=== PATIENT | male | born 1970 ===

== ENCOUNTER 2017-01-01 07:13 | Inpatient (IN) | payer OTHER ==
[2017-01-01 07:27] VITALS: BMI 28.1
--- NOTE | 2017-01-01 07:39 | ED PDOC ---
HPI: Male Pain Time Seen by Provider: 01/01/17 07:17 Chief Complaint (Nursing): Fever History Per: Patient History/Exam Limitations: no limitations Onset/Duration Of Symptoms: Days (x 6) Additional Complaint(s): Vitor Arrington is a 46 year old male, with no previous medical history, who presents to the ED with complaints of suprapubic tenderness associated with hematuria and fever ongoing for 6 days. Patient denies any back pain, nausea, vomiting, diarrhea or bloody stools. He reports hematuria has been intermittently ongoing for the past month and a half. PMD: none provided Past Medical History Reviewed: Historical Data, Nursing Documentation, Vital Signs Vital Signs: Last Vital Signs Temp 101.4 F H 01/01/17 07:26 Pulse 99 H 01/01/17 07:26 Resp 16 01/01/17 07:26 BP 152/96 H 01/01/17 07:26 Pulse Ox 98 01/01/17 07:26 - Medical History PMH: No Chronic Diseases - Family History Family History: States: Unknown Family Hx - Allergies Allergies/Adverse Reactions: Allergies Allergy/AdvReac Type Severity Reaction Status Date / Time No Known Allergies Allergy Verified 01/01/17 07:34 Review of Systems ROS Statement: Except As Marked, All Systems Reviewed And Found Negative Constitutional: Positive for: Fever Gastrointestinal: Positive for: Abdominal Pain (suprpubic ). Negative for: Nausea, Vomiting, Diarrhea Genitourinary Male: Positive for: Hematuria. Negative for: Incontinence Musculoskeletal: Negative for: Back Pain Physical Exam - Reviewed Nursing Documentation Reviewed: Yes Vital Signs Reviewed: Yes - Physical Exam Appears: Positive for: Well, Non-toxic, No Acute Distress Skin: Positive for: Normal Color, Warm, Dry Cardiovascular/Chest: Positive for: Regular Rate, Rhythm Respiratory: Positive for: CNT, Normal Breath Sounds Gastrointestinal/Abdominal: Positive for: Bowel Sounds, Soft, Tenderness ( suprapubic ). Negative for: Mass, Guarding Male Genital Exam: Negative for: bleeding (at the meatus ), lesions, scrotum tenderness (R), scrotum tenderness (L) Back: Positive for: Normal Inspection. Negative for: L CVA Tenderness, R CVA Tenderness Extremity: Positive for: Normal ROM Neurologic/Psych: Positive for: Alert, Oriented - Laboratory Results Result Diagrams: 01/01/17 07:55 01/01/17 07:55 - ECG O2 Sat by Pulse Oximetry: 98 (RA) Pulse Ox Interpretation: Normal Medical Decision Making Medical Decision Making: Initial Plan: * VBG shock panel * CT abd & pelvis w/o contrast * labs * urine dipstick * Tylenol 650mg PO * blood culture * urine culture * reevaluation Scribe Attestation: Documented by Liyah Gomez, acting as a scribe for Edin Donnelly MD. Provider Scribe Attestation: All medical record entries made by the Scribe were at my direction and personally dictated by me. I have reviewed the chart and agree that the record accurately reflects my personal performance of the history, physical exam, medical decision making, and the department course for this patient. I have also personally directed, reviewed, and agree with the discharge instructions and disposition. Disposition - Clinical Impression Clinical Impression: Sepsis, Diverticulitis - Patient ED Disposition Is Patient to be Admitted: Yes - Disposition Disposition Time: 10:16 Condition: FAIR Forms: [employer] (Kinyarwanda) - Pt Status Changed To: Hospital Disposition Of: Inpatient - Admit Certification Admit to Inpatient:: After my assessment, the patient will require hospitalization for at least two midnights. This is because of the severity of symptoms shown, intensity of services needed, and/or the medical risk in this patient being treated as an outpatient. - POA Present On Arrival: None
[2017-01-01 08:04] LABS: BASO % 0.4 % (0.0-2.0); EOS % 0.1 % (0.0-4.0); HEMATOCRIT 43.4 % (35.0-51.0); LYMPH # 1.5 K/uL (1.0-4.3); MEAN CELL VOLUME 89.8 fl (80.0-94.0); MEAN CORPUSCULAR HEMOGLOBIN 30.6 pg (27.0-31.0); MEAN CORPUSCULAR HGB CONC 34.1 g/dL (33.0-37.0); MEAN PLATELET VOLUME 8.6 fl (7.2-11.7); MONO # 1.1 K/uL (0.0-0.8); MONO % 11.9 % (0.0-10.0); NEUT # 6.6 K/uL (1.8-7.0); NEUT % 71.6 % (50.0-75.0); WHITE BLOOD COUNT 9.2 K/uL (4.8-10.8)
[2017-01-01 08:06] LABS: VENOUS BLOOD GAS BASE EXCESS 3.6 mmol/L (0.0-2.0); VENOUS BLOOD GAS PCO2 35 mmHg (40-60); VENOUS BLOOD PH 7.49 (7.32-7.43)
[2017-01-01 08:13] LABS: ALB/GLOB RATIO 1.3 (1.0-2.1); ALKALINE PHOSPHATASE 60 U/L (38-126); ALT/SGPT 75 U/L (21-72); AST/SGOT 48 U/L (17-59); BILIRUBIN,TOTAL 0.9 mg/dl (0.2-1.3); BLOOD UREA NITROGEN 19 mg/dl (9-20); CALCIUM 9.1 mg/dL (8.4-10.2); CARBON DIOXIDE 25 mmol/L (22-30); CHLORIDE 104 mmol/L (98-107); GFR AFRICAN-AMERICAN > 60; GLUCOSE,RANDOM 116 mg/dL (75-110); POTASSIUM 3.7 MMOL/L (3.6-5.0); SODIUM 140 mmol/l (132-148)
--- NOTE | 2017-01-01 09:35 | CT ---
PROCEDURE: CT Abdomen and Pelvis without intravenous contrast HISTORY: r/o kidney stone COMPARISON: None. TECHNIQUE: Technique. Contrast Dose: Radiation dose: Total exam DLP = 1199 mGy-cm. This CT exam was performed using one or more of the following dose reduction techniques: Automated exposure control, adjustment of the mA and/or kV according to patient size, and/or use of iterative reconstruction technique. FINDINGS: LOWER THORAX: Unremarkable. LIVER: Fatty infiltration. No gross lesion or ductal dilatation. GALLBLADDER AND BILE DUCTS: Unremarkable. PANCREAS: Unremarkable. No gross lesion or ductal dilatation. SPLEEN: Unremarkable. ADRENALS: Unremarkable. No mass. KIDNEYS AND URETERS: Unremarkable. No hydronephrosis. No solid mass. VASCULATURE: Unremarkable. No aortic aneurysm. BOWEL: Extensive colonic diverticulosis with severe pericolonic fat infiltration along the sigmoid colon in the supra vesicle region consistent with severe acute diverticulitis. No gross abscess or pneumoperitoneum.. No obstruction. No gross mural thickening. APPENDIX: Unremarkable. Normal appendix. PERITONEUM: Unremarkable. No free fluid. No free air. LYMPH NODES: Unremarkable. No enlarged lymph nodes. BLADDER: Unremarkable. REPRODUCTIVE: Unremarkable. BONES: No acute fracture. OTHER FINDINGS: None. IMPRESSION: Severe diverticulitis of the sigmoid colon with extensive infiltration in the supra vesicle mesenteric fat. No renal calculus.
[2017-01-01] MEDS ORDERED: Piperacillin/Tazobact 3.375 GM in Sodium Chloride 0.9% 100 ML IVPB STA (10:14)
[2017-01-01] MEDS ORDERED: Vancomycin 1 g Inj ONE (10:32)
--- NOTE | 2017-01-01 11:55 | CP.PCM.HP ---
History of Present Illness - History of Present Illness History of Present Illness: 46 yo male with no significant PMH came in complaining of suprapubic pain, dysuria, hematuria and fever the past 6 days. He was seen in an outpatient clinic where work ups turned out WNL: no leukocytosis, no hematuria or evidence of UTI and PSA was WNL. With symptoms not abating patient decided to check in to our ER dept. Denied chest pain, SOB or diarrhea. Present on Admission - Present on Admission Any Indicators Present on Admission: No History of DVT/PE: No History of Uncontrolled Diabetes: No Urinary Catheter: No Decubitus Ulcer Present: No Review of Systems - Review of Systems All systems: reviewed and no additional remarkable complaints except (aside from those mentioned above, 12 point system review were negative by me) Past Patient History - Tetanus Immunizations Tetanus Immunization: Unknown - Past Medical History & Family History Past Medical History?: No Pertinent Family History: Father of Prostate Cancer at age 59 - Past Social History Smoking Status: Never Smoked Alcohol: > 2 Drinks/Day (drinks 2-3 bottles of beer) Home Situation {Lives}: With Family - CARDIAC Hx Cardiac Disorders: No - PULMONARY Hx Respiratory Disorders: No - NEUROLOGICAL Hx Neurological Disorder: No - HEENT Hx HEENT Problems: No - RENAL Hx Chronic Kidney Disease: No - ENDOCRINE/METABOLIC Hx Endocrine Disorders: No - HEMATOLOGICAL/ONCOLOGICAL Hx Blood Disorders: No - INTEGUMENTARY Hx Dermatological Problems: No - MUSCULOSKELETAL/RHEUMATOLOGICAL Hx Musculoskeletal Disorders: No - GASTROINTESTINAL Hx Gastrointestinal Disorders: No - GENITOURINARY/GYNECOLOGICAL Hx Genitourinary Disorders: No - PSYCHIATRIC Hx Psychophysiologic Disorder: No Hx Substance Use: No - SURGICAL HISTORY Hx Surgeries: No - ANESTHESIA Hx Anesthesia: No Meds Allergies/Adverse Reactions: Allergies Allergy/AdvReac Type Severity Reaction Status Date / Time No Known Allergies Allergy Verified 01/01/17 07:34 Physical Exam - Constitutional Appears: No Acute Distress - Head Exam Head Exam: ATRAUMATIC - Eye Exam Eye Exam: absent: Scleral icterus - ENT Exam ENT Exam: Mucous Membranes Moist - Neck Exam Neck exam: Negative for: Meningismus - Respiratory Exam Respiratory Exam: absent: Rhonchi, Wheezes, Respiratory Distress - Cardiovascular Exam Cardiovascular Exam: REGULAR RHYTHM, +S1, +S2 - GI/Abdominal Exam GI & Abdominal Exam: Normal Bowel Sounds, Soft. absent: Tenderness - Rectal Exam Rectal Exam: Deferred - Extremities Exam Extremities exam: Negative for: pedal edema - Back Exam Back exam: absent: tenderness - Neurological Exam Neurological exam: Alert, Oriented x3 - Psychiatric Exam Psychiatric exam: Normal Affect - Skin Skin Exam: Dry, Intact, Warm Results - Vital Signs Recent Vital Signs: Last Vital Signs Temp 99.0 F 01/01/17 10:40 Pulse 81 01/01/17 10:40 Resp 17 01/01/17 10:40 BP 138/91 H 01/01/17 10:40 Pulse Ox 96 01/01/17 10:40 - Labs Result Diagrams: 01/01/17 07:55 01/01/17 07:55 Assessment & Plan (1) Sepsis Status: Acute Comment: Admit to telemetry. start on IV hydration with NSS 100cc/hr. blood and urine culture. start on empirical IV antibiotics. Tylenol 650mg PO q 6hrs prn for fever (2) Diverticulitis Status: Acute Comment: Rocephin 1gm IV daily. Zosyn 3.375gm IV q 6hrs. follow up blood and urine culture (3) DVT prophylaxis Status: Acute Comment: venodyne boots while on bed. avoid anticoagulation because of possible hematuria
[2017-01-01] MEDS ORDERED: Pantoprazole 40 mg EC Tab PO ONE (12:10)
[2017-01-01] MEDS: Sodium Chloride 0.9% 1,000 ML IV SCH ×2 (12:13→22:00)
[2017-01-01] MEDS: Pantoprazole 40 mg EC Tab PO SCH (12:13)
[2017-01-01] MEDS ORDERED: Piperacillin/Tazobact 3.375 gm Inj IVPB ONE (12:15)
[2017-01-01 12:47] LABS: RBC URINE 12 /hpf (0-3); URINE BILIRUBIN NEGATIVE (NEGATIVE); URINE BLOOD SMALL (NEGATIVE); URINE COLOR AMBER (YELLOW); URINE GLUCOSE (UA) NEG (Normal); URINE KETONE 20 mg/dL (NEGATIVE); URINE LEUKOCYTE ESTERASE NEG Leu/uL (Negative); URINE PROTEIN 100 mg/dL (NEGATIVE); WBC URINE 1 /hpf (0-5)
[2017-01-01] MEDS: metroNIDAZOLE 500mg/100ml NS 100 ML IVPB SCH (17:03)
[2017-01-01] MEDS: Piperacillin/Tazobact 3.375 GM in Sodium Chloride 0.9% 100 ML IVPB SCH ×2 (17:04→21:22)
[2017-01-02] MEDS: metroNIDAZOLE 500mg/100ml NS 100 ML IVPB SCH ×3 (01:02→18:15)
[2017-01-02] MEDS: Piperacillin/Tazobact 3.375 GM in Sodium Chloride 0.9% 100 ML IVPB SCH ×4 (03:26→21:19)
[2017-01-02 08:24] LABS: BASO % 0.4 % (0.0-2.0); EOS # 0.1 K/uL (0.0-0.7); EOS % 1.8 % (0.0-4.0); HEMATOCRIT 41.2 % (35.0-51.0); LYMPH # 0.7 K/uL (1.0-4.3); LYMPH % 11.1 % (20.0-40.0); MEAN CELL VOLUME 89.2 fl (80.0-94.0); MEAN CORPUSCULAR HEMOGLOBIN 30.6 pg (27.0-31.0); MEAN CORPUSCULAR HGB CONC 34.3 g/dL (33.0-37.0); MEAN PLATELET VOLUME 8.6 fl (7.2-11.7); MONO # 0.8 K/uL (0.0-0.8); NEUT # 4.4 K/uL (1.8-7.0); NEUT % 73.7 % (50.0-75.0); NRBC % 0.2 % (0.0-0.0); RED CELL DISTRIBUTION WIDTH 13.4 % (11.5-14.5)
[2017-01-02 08:29] LABS: BLOOD UREA NITROGEN 17 mg/dl (9-20); CALCIUM 8.5 mg/dL (8.4-10.2); CARBON DIOXIDE 22 mmol/L (22-30); CHLORIDE 107 mmol/L (98-107); GFR AFRICAN-AMERICAN > 60; GLUCOSE,RANDOM 107 mg/dL (75-110); POTASSIUM 3.5 MMOL/L (3.6-5.0); SODIUM 139 mmol/l (132-148)
[2017-01-02] MEDS: Sodium Chloride 0.9% 1,000 ML IV SCH ×2 (08:58→18:14)
[2017-01-02] MEDS: Pantoprazole 40 mg EC Tab PO SCH (08:59)
[2017-01-02] MEDS ORDERED: Potassium Chloride 10 mEq ER Tab PO ONE (09:45)
--- NOTE | 2017-01-02 18:55 | CP.PCM.PN ---
Subjective - Date & Time of Evaluation Date of Evaluation: 01/02/17 Time of Evaluation: 17:00 - Subjective Subjective: Pt seen and examined. Still having suprapubic pain but less compared to yesterday. Denied dysuria or hematuria today. Objective - Vital Signs/Intake and Output Vital Signs (last 24 hours): Temp Pulse Resp BP Pulse Ox 98.5 F 86 20 149/92 H 97 01/02/17 15:45 01/02/17 15:45 01/02/17 15:45 01/02/17 15:45 01/02/17 15:45 - Medications Medications: Current Medications Acetaminophen (Tylenol 325mg Tab) 650 mg PO Q4 PRN PRN Reason: Fever >100.4 F Last Admin: 01/01/17 18:56 Dose: 650 mg Sodium Chloride (Sodium Chloride 0.9%) 1,000 mls @ 100 mls/hr IV .Q10H [facility] Last Admin: 01/02/17 18:14 Dose: 100 mls/hr Metronidazole (Flagyl 500mg/100ml Ns) 100 mls @ 100 mls/hr IVPB Q8 [facility] Last Admin: 01/02/17 18:15 Dose: 100 mls/hr Piperacillin Sod/Tazobactam (Sod 3.375 gm/ Sodium Chloride) 100 mls @ 100 mls/ hr IVPB Q6 [facility] Last Admin: 01/02/17 18:14 Dose: 100 mls/hr Pantoprazole Sodium (Protonix Ec Tab) 40 mg PO DAILY [facility] Last Admin: 01/02/17 08:59 Dose: 40 mg - Labs Labs: 01/02/17 07:00 01/02/17 07:00 - Constitutional Appears: No Acute Distress - Head Exam Head Exam: ATRAUMATIC - Eye Exam Eye Exam: absent: Scleral icterus - ENT Exam ENT Exam: Mucous Membranes Moist - Neck Exam Neck Exam: absent: Meningismus - Respiratory Exam Respiratory Exam: absent: Rhonchi, Wheezes, Respiratory Distress - Cardiovascular Exam Cardiovascular Exam: REGULAR RHYTHM, +S1, +S2 - GI/Abdominal Exam GI & Abdominal Exam: Soft. absent: Tenderness - Rectal Exam Rectal Exam: Deferred - Extremities Exam Extremities Exam: absent: Pedal Edema - Back Exam Back Exam: absent: tenderness - Neurological Exam Neurological Exam: Alert, Oriented x3 - Psychiatric Exam Psychiatric exam: Normal Affect - Skin Skin Exam: Dry, Intact Assessment and Plan (1) Sepsis Status: Acute (2) Diverticulitis Status: Acute (3) DVT prophylaxis Status: Acute - Assessment and Plan (Free Text) Assessment: 46 yo male with no significant PMH came in complaining of suprapubic pain, dysuria with grossly bloody urine and fever the past 6 days. (1) Sepsis resolved afebrile since admission and no leukocytosis (2) Diverticulitis continue Rocephin 1gm IV daily and Zosyn 3.375gm IV q 6hrs. CT scan of abdomen and pelvis: severe diverticulitis of sigmoid colon with extensive infiltration in the supra vesicle mesenteric fat probably causing the suprapubic pain follow up consult with Dr Newsome and Dr Ahmadi (3) DVT prophylaxis venodyne boots while on bed. avoid anticoagulation because of possible hematuria
[2017-01-02 19:13] VITALS: O2SAT 98
[2017-01-03] MEDS: metroNIDAZOLE 500mg/100ml NS 100 ML IVPB SCH ×2 (01:29→08:55)
[2017-01-03] MEDS: Piperacillin/Tazobact 3.375 GM in Sodium Chloride 0.9% 100 ML IVPB SCH ×2 (04:17→09:03)
[2017-01-03] MEDS: Pantoprazole 40 mg EC Tab PO SCH (08:56)
[2017-01-03] MEDS: Sodium Chloride 0.9% 1,000 ML IV SCH (12:57)
--- NOTE | 2017-01-03 14:34 | CP.PCM.CON ---
History of Present Illness - History of Present Illness History of Present Illness: 46 yo male c/o suprapubic pain, dysuria, and hematuria . He initially went to the clinic and came to ER when symptoms did not improve. Review of Systems - Constitutional Constitutional: absent: Chills - EENT Eyes: absent: Blurred Vision Ears: absent: Decreased Hearing Nose/Mouth/Throat: absent: Epistaxis - Cardiovascular Cardiovascular: absent: Chest Pain - Respiratory Respiratory: absent: Dyspnea - Gastrointestinal Gastrointestinal: As Per HPI - Genitourinary Genitourinary: Hematuria Past Patient History - Tetanus Immunizations Tetanus Immunization: Unknown - Past Medical History & Family History Past Medical History?: No - Past Social History Smoking Status: Never Smoked - CARDIAC Hx Cardiac Disorders: No - PULMONARY Hx Respiratory Disorders: No - NEUROLOGICAL Hx Neurological Disorder: No - HEENT Hx HEENT Problems: No - RENAL Hx Chronic Kidney Disease: No - ENDOCRINE/METABOLIC Hx Endocrine Disorders: No - HEMATOLOGICAL/ONCOLOGICAL Hx Blood Disorders: No - INTEGUMENTARY Hx Dermatological Problems: No - MUSCULOSKELETAL/RHEUMATOLOGICAL Hx Musculoskeletal Disorders: No Hx Falls: No - GASTROINTESTINAL Hx Gastrointestinal Disorders: No - GENITOURINARY/GYNECOLOGICAL Hx Genitourinary Disorders: No - PSYCHIATRIC Hx Psychophysiologic Disorder: No Hx Substance Use: No - SURGICAL HISTORY Hx Surgeries: No - ANESTHESIA Hx Anesthesia: No Meds Allergies/Adverse Reactions: Allergies Allergy/AdvReac Type Severity Reaction Status Date / Time No Known Allergies Allergy Verified 01/01/17 07:34 - Medications Medications: Current Medications Acetaminophen (Tylenol 325mg Tab) 650 mg PO Q4 PRN PRN Reason: Fever >100.4 F Last Admin: 01/01/17 18:56 Dose: 650 mg Sodium Chloride (Sodium Chloride 0.9%) 1,000 mls @ 100 mls/hr IV .Q10H [facility] Last Admin: 01/03/17 12:57 Dose: 100 mls/hr Metronidazole (Flagyl 500mg/100ml Ns) 100 mls @ 100 mls/hr IVPB Q8 [facility] Last Admin: 01/03/17 08:55 Dose: 100 mls/hr Piperacillin Sod/Tazobactam (Sod 3.375 gm/ Sodium Chloride) 100 mls @ 100 mls/ hr IVPB Q6 [facility] Last Admin: 01/03/17 09:03 Dose: 100 mls/hr Pantoprazole Sodium (Protonix Ec Tab) 40 mg PO DAILY [facility] Last Admin: 01/03/17 08:56 Dose: 40 mg Physical Exam - Head Exam Head Exam: NORMAL INSPECTION - Eye Exam Eye Exam: Normal appearance Pupil Exam: PERRL - ENT Exam ENT Exam: Normal Exam - Neck Exam Neck exam: Positive for: Normal Inspection - Respiratory Exam Respiratory Exam: Clear to Auscultation Bilateral - Cardiovascular Exam Cardiovascular Exam: REGULAR RHYTHM, +S1, +S2 - GI/Abdominal Exam GI & Abdominal Exam: Normal Bowel Sounds, Soft, Tenderness Additional comments: marked LLQ and suprapubic tenderness Results - Vital Signs Recent Vital Signs: Last Vital Signs Temp 97.9 F 01/03/17 12:00 Pulse 73 01/03/17 12:00 Resp 18 01/03/17 12:00 BP 139/89 01/03/17 12:00 Pulse Ox 98 01/03/17 12:00 - Labs Result Diagrams: 01/02/17 07:00 01/02/17 07:00 - Imaging and Cardiology CT scan - pelvis Status: Report reviewed by me Assessment & Plan (1) Diverticulitis Assessment and Plan: Severe diverticulitis. 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 Continue IV antibiotics at least one more day and follow clinically. Status: Acute
--- NOTE | 2017-01-03 15:26 | CP.PCM.DIS ---
Provider - Provider Date of Admission: 01/01/17 10:14 Attending physician: Jose Renteria MD Consults: Dr Jerod Ahmadi Time Spent in preparation of Discharge (in minutes): 35 Diagnosis - Discharge Diagnosis (1) Sepsis Status: Resolved Comment: resolved (2) Diverticulitis Status: Acute Comment: continue Augmentin 875/125 PO BID and Flagyl 500mg PO TID for 10 days (3) Hematuria Status: Suspected Comment: no recurrence since admission. to see Dr Ahmadi, urologist next Tuesday Hospital Course - Lab Results Lab Results: Micro Results 01/01/17 13:46 Blood Blood Culture - Preliminary NO GROWTH AFTER 48 HOURS Most Recent Lab Values WBC 6.0 K/uL (4.8-10.8) 01/02/17 07:00 RBC 4.62 Mil/uL (4.40-5.90) 01/02/17 07:00 Hgb 14.1 g/dL (12.0-18.0) 01/02/17 07:00 Hct 41.2 % (35.0-51.0) 01/02/17 07:00 MCV 89.2 fl (80.0-94.0) 01/02/17 07:00 MCH 30.6 pg (27.0-31.0) 01/02/17 07:00 MCHC 34.3 g/dL (33.0-37.0) 01/02/17 07:00 RDW 13.4 % (11.5-14.5) 01/02/17 07:00 Plt Count 122 K/uL (130-400) L 01/02/17 07:00 MPV 8.6 fl (7.2-11.7) 01/02/17 07:00 Neut % (Auto) 73.7 % (50.0-75.0) 01/02/17 07:00 Lymph % (Auto) 11.1 % (20.0-40.0) L 01/02/17 07:00 [place] % (Auto) 13.0 % (0.0-10.0) H 01/02/17 07:00 Eos % (Auto) 1.8 % (0.0-4.0) 01/02/17 07:00 Baso % (Auto) 0.4 % (0.0-2.0) 01/02/17 07:00 Neut # 4.4 K/uL (1.8-7.0) 01/02/17 07:00 Lymph # 0.7 K/uL (1.0-4.3) L 01/02/17 07:00 [place] # 0.8 K/uL (0.0-0.8) 01/02/17 07:00 Eos # 0.1 K/uL (0.0-0.7) 01/02/17 07:00 Baso # 0.0 K/uL (0.0-0.2) 01/02/17 07:00 pO2 30 mm/Hg (30-55) 01/01/17 07:38 VBG pH 7.49 (7.32-7.43) H 01/01/17 07:38 VBG pCO2 35 mmHg (40-60) L 01/01/17 07:38 VBG HCO3 26.5 mmol/L 01/01/17 07:38 VBG Total CO2 27.8 mmol/L (22-28) 01/01/17 07:38 VBG O2 Sat (Calc) 58.0 % (40-65) 01/01/17 07:38 VBG Base Excess 3.6 mmol/L (0.0-2.0) H 01/01/17 07:38 Sodium 196.0 mmol/L (132-148) H* 01/01/17 07:38 Chloride 116.0 mmol/L (98-107) H 01/01/17 07:38 Glucose 106 mg/dL (75-110) 01/01/17 07:38 Lactate 1.6 mmol/L (0.7-2.1) 01/01/17 07:38 FiO2 21.0 % 01/01/17 07:38 Blood Gas Comments Vbg 01/01/17 07:38 Crit Value Called To Neelam hammond r.n. 01/01/17 07:38 Crit Value Called By Neda 01/01/17 07:38 Crit Value Read Back Y 01/01/17 07:38 Blood Gas Notified Time 809 01/01/17 07:38 Sodium 139 mmol/l (132-148) 01/02/17 07:00 Potassium 3.5 MMOL/L (3.6-5.0) L 01/02/17 07:00 Chloride 107 mmol/L (98-107) 01/02/17 07:00 Carbon Dioxide 22 mmol/L (22-30) 01/02/17 07:00 Anion Gap 14 (10-20) 01/02/17 07:00 BUN 17 mg/dl (9-20) 01/02/17 07:00 Creatinine 0.9 mg/dL (0.8-1.5) 01/02/17 07:00 Est GFR ( Amer) > 60 01/02/17 07:00 Est GFR (Non-Af Amer) > 60 01/02/17 07:00 Random Glucose 107 mg/dL (75-110) 01/02/17 07:00 Calcium 8.5 mg/dL (8.4-10.2) 01/02/17 07:00 Total Bilirubin 0.9 mg/dl (0.2-1.3) 01/01/17 07:55 AST 48 U/L (17-59) 01/01/17 07:55 ALT 75 U/L (21-72) H 01/01/17 07:55 Alkaline Phosphatase 60 U/L (38-126) 01/01/17 07:55 Total Protein 8.0 G/DL (6.3-8.2) 01/01/17 07:55 Albumin 4.5 g/dL (3.5-5.0) 01/01/17 07:55 Globulin 3.6 gm/dL (2.2-3.9) 01/01/17 07:55 Albumin/Globulin Ratio 1.3 (1.0-2.1) 01/01/17 07:55 Urine Color Susana (YELLOW) 01/01/17 12:33 Urine Clarity Slighty-cloudy (Clear) 01/01/17 12:33 Urine pH 6.0 (5.0-8.0) 01/01/17 12:33 Ur Specific Dewitt 1.028 (1.003-1.030) 01/01/17 12:33 Urine Protein 100 mg/dL (NEGATIVE) 01/01/17 12:33 Urine Glucose (UA) Neg mg/dL (Normal) 01/01/17 12:33 Urine Ketones 20 mg/dL (NEGATIVE) 01/01/17 12:33 Urine Blood Small (NEGATIVE) 01/01/17 12:33 Urine Nitrate Negative (NEGATIVE) 01/01/17 12:33 Urine Bilirubin Negative (NEGATIVE) 01/01/17 12:33 Urine Urobilinogen 4.0 mg/dL (0.2-1.0) 01/01/17 12:33 Ur Leukocyte Esterase Neg Jeanine/uL (Negative) 01/01/17 12:33 Urine RBC (Auto) 12 /hpf (0-3) H 01/01/17 12:33 Urine Microscopic WBC 1 /hpf (0-5) 01/01/17 12:33 - Hospital Course Hospital Course: 46 yo male with no significant PMH came in complaining of suprapubic pain, dysuria, hematuria and fever the past 6 days. He was seen in an outpatient clinic where work ups turned out WNL: no leukocytosis, no hematuria or evidence of UTI; PSA was WNL. CT scan of abdomen/pelvis showed severe diverticulitis of sigmoid colon with extensive infiltration of the supra vesicle mesenteric fat. Patient was started on IV Zosyn and Flagyl. His condition improved. There was no recurrence of fever or hematuria although he continued to have mild suprapubic pain. Patient was discharged in stable condition and advised to follow up with Dr Zhong. He will continue taking Augmentin and Flagyl until they are consumed. Discharge Exam - Head Exam Head Exam: NORMAL INSPECTION - Eye Exam Eye Exam: absent: Scleral icterus - ENT Exam ENT Exam: Mucous Membranes Moist - Respiratory Exam Respiratory Exam: absent: Wheezes, Respiratory Distress - Cardiovascular Exam Cardiovascular Exam: REGULAR RHYTHM, +S1, +S2 - GI/Abdominal Exam GI & Abdominal Exam: Soft. absent: Tenderness - Rectal Exam Rectal Exam: Deferred - Neurological Exam Neurological exam: Alert, Oriented x3 - Psychiatric Exam Psychiatric exam: Normal Affect - Skin Skin Exam: Dry, Intact Discharge Plan - Discharge Medications Prescriptions: Amoxicillin/Clavulanate [Augmentin 875 MG-125 MG] 1 tab PO BID #20 tab metroNIDAZOLE [Flagyl] 500 mg PO TID #30 tab - Follow Up Plan Condition: FAIR Disposition: HOME/ ROUTINE Referrals: Jack Ahmadi MD [Medical Doctor] -
[2017-01-03 15:39] VITALS: BP 129/83; PULSE 67; RESP 20; TEMP 98.3
== END 2017-01-03 16:20 | disposition home or self-care (01) | DRG 901 ==
LOC: H.ER 07:13 → H.ERHOLD 10:14 → H.TEL 12:46
DX: A41.9 Sepsis, unspecified organism (principal); K57.32 Diverticulitis of large intestine without perforation or abscess without bleeding; R31.9 Hematuria, unspecified

== ENCOUNTER 2017-02-13 10:22 | Emergency (ER) | payer OTHER ==
[2017-02-13 10:27] VITALS: BP 128/83; PULSE 73; RESP 16; TEMP 98; O2SAT 98; BMI 29.0
--- NOTE | 2017-02-13 11:01 | ED PDOC ---
HPI: Abdomen Time Seen by Provider: 02/13/17 10:36 Chief Complaint (Nursing): Abdominal Pain Chief Complaint (Provider): Abdominal Pain History Per: Patient History/Exam Limitations: no limitations Onset/Duration Of Symptoms: Days (x1 week) Current Symptoms Are (Timing): Still Present Additional Complaint(s): 46 y/o male with a past medical history of diverticulitis who presents to the emergency department with a complaint of an abdominal pain x1 week. Assocaited with fever that he had twice within last week but had resolved since. Describes pain is similar to diverticulitis pain experienced in the past. Reports taking Ibuprofen for fever on , 02/10/2017. Denies dysuria, diarrhea, nausea, and vomiting. Of note, patient was admitted to our facility on 01/01/2017 with diverticulitis. PMD: None Past Medical History Reviewed: Historical Data, Nursing Documentation, Vital Signs Vital Signs: Last Vital Signs Temp 98 F 02/13/17 10:25 Pulse 73 02/13/17 10:25 Resp 16 02/13/17 10:25 BP 128/83 02/13/17 10:25 Pulse Ox 98 02/13/17 13:48 - Medical History PMH: Diverticulitis Denies: Chronic Kidney Disease - Family History Family History: States: Unknown Family Hx - Home Medications Home Medications: Ambulatory Orders Medication Instructions Recorded Naproxen [Naprosyn] 500 mg PO BID PRN #15 tablet 02/13/17 - Allergies Allergies/Adverse Reactions: Allergies Allergy/AdvReac Type Severity Reaction Status Date / Time No Known Allergies Allergy Verified 01/01/17 07:34 Review of Systems ROS Statement: Except As Marked, All Systems Reviewed And Found Negative Constitutional: Positive for: Fever (Had resolved since) Gastrointestinal: Positive for: Abdominal Pain (Lower region greater than upper) . Negative for: Nausea, Vomiting, Diarrhea Genitourinary Male: Negative for: Dysuria Physical Exam - Reviewed Nursing Documentation Reviewed: Yes Vital Signs Reviewed: Yes - Physical Exam Appears: Positive for: Non-toxic, No Acute Distress Head Exam: Positive for: ATRAUMATIC, NORMAL INSPECTION, NORMOCEPHALIC Skin: Positive for: Normal Color, Warm, Dry Neck: Positive for: Normal, Supple Cardiovascular/Chest: Positive for: Regular Rate, Rhythm. Negative for: Murmur Respiratory: Positive for: Normal Breath Sounds. Negative for: Accessory Muscle Use, Respiratory Distress Gastrointestinal/Abdominal: Positive for: Soft, Tenderness (generalized). Negative for: Normal Exam Extremity: Positive for: Normal ROM. Negative for: Pedal Edema Neurologic/Psych: Positive for: Alert, Oriented (x3) - Laboratory Results Result Diagrams: 02/13/17 11:18 02/13/17 11:18 - ECG O2 Sat by Pulse Oximetry: 98 (RA) Pulse Ox Interpretation: Normal Medical Decision Making Medical Decision Making: Time: 10:48 Initial impression: Abdominal pain Initial plan: --VBG Shock panel --Abd & pelvis IV Contrast CT --EKG --CMP --Lipase --Urine DIP --CBC w/ diff --PTT & Prothrombin --Morphine 2 mg IV --Blood culture --Urine Culture --Urinalysis --Reevaluation Time: 12:39 --Abd/Pelvis CT FINDINGS: LOWER THORAX: Unremarkable. LIVER: Unremarkable. No gross lesion or ductal dilatation. GALLBLADDER AND BILE DUCTS: Unremarkable. PANCREAS: Unremarkable. No gross lesion or ductal dilatation. SPLEEN: Unremarkable. ADRENALS: Unremarkable. No mass. KIDNEYS AND URETERS: Unremarkable. No hydronephrosis. No solid mass. VASCULATURE: Unremarkable. No aortic aneurysm. BOWEL: There is diverticulosis of the sigmoid colon without evidence of diverticulitis. Previous study showed diverticulitis in the sigmoid colon. This has resolved with no residual abscess. APPENDIX: Normal appendix. PERITONEUM: Unremarkable. No free fluid. No free air. LYMPH NODES: Unremarkable. No enlarged lymph nodes. BLADDER: Unremarkable. REPRODUCTIVE: Unremarkable. BONES: No acute fracture. OTHER FINDINGS: None. IMPRESSION: There is diverticulosis of the sigmoid colon without evidence of diverticulitis. Previous study showed diverticulitis in the sigmoid colon. This has resolved with no residual abscess. Time: 13:30 Upon provider reevaluation patient is feeling better, is medically stable, and requires no further treatment in the ED at this time. Patient will be discharged home with Rx for Naprosyn 500 mg. Counseling was provided and all questions were answered regarding diagnosis and need for follow up with referred clinics. There is agreement to discharge plan. Return if symptoms persist or worsen. Clinical Impression: Diverticulosis and abdominal pain Scribe Attestation: Documented by Carli Carranza, acting as a scribe for Liyah Domínguez MD. Provider Scribe Attestation: All medical record entries made by the Scribe were at my direction and personally dictated by me. I have reviewed the chart and agree that the record accurately reflects my personal performance of the history, physical exam, medical decision making, and the department course for this patient. I have also personally directed, reviewed, and agree with the discharge instructions and disposition. Disposition - Clinical Impression Clinical Impression: Diverticulosis, Abdominal pain - Patient ED Disposition Is Patient to be Admitted: No Counseled Patient/Family Regarding: Studies Performed, Diagnosis, Need For Followup - Disposition Referrals: [facility] [Outside] [facility] [Outside] Disposition: Routine/Home Disposition Time: 13:30 Condition: STABLE Prescriptions: Naproxen [Naprosyn] 500 mg PO BID PRN #15 tablet PRN Reason: Pain, Moderate (4-7) Instructions: Diverticulosis (ED), Diverticulosis Diet (ED), Abdominal Pain (ED ) Forms: [employer] (Tajik) Print Language: ROMANIAN
[2017-02-13] MEDS ORDERED: Sodium Chloride 0.9% 50 ML IV ONE (11:18)
[2017-02-13] MEDS ORDERED: Iohexol 300 100 ML IJ ONE (11:18)
[2017-02-13 11:36] LABS: VENOUS BLOOD GAS BASE EXCESS 0.3 mmol/L (0.0-2.0); VENOUS BLOOD GAS PCO2 45 mmHg (40-60); VENOUS BLOOD PH 7.37 (7.32-7.43)
[2017-02-13 11:42] LABS: ALB/GLOB RATIO 1.3 (1.0-2.1); ALKALINE PHOSPHATASE 69 U/L (38-126); ALT/SGPT 94 U/L (21-72); AST/SGOT 47 U/L (17-59); BILIRUBIN,TOTAL 0.6 mg/dl (0.2-1.3); BLOOD UREA NITROGEN 20 mg/dl (9-20); CALCIUM 9.4 mg/dL (8.4-10.2); CARBON DIOXIDE 25 mmol/L (22-30); CHLORIDE 107 mmol/L (98-107); GFR AFRICAN-AMERICAN > 60; GLUCOSE,RANDOM 93 mg/dL (75-110); LIPASE 125 U/L (23-300); POTASSIUM 3.7 MMOL/L (3.6-5.0); SODIUM 143 mmol/l (132-148); TOTAL PROTEIN 7.9 G/DL (6.3-8.2)
[2017-02-13 11:48] LABS: PARTIAL THROMBOPLASTIN TIME 34.5 Seconds (25.6-37.1)
[2017-02-13 11:52] LABS: BASO % 0.6 % (0.0-2.0); EOS # 0.3 K/uL (0.0-0.7); EOS % 4.9 % (0.0-4.0); HEMATOCRIT 45.2 % (35.0-51.0); LYMPH # 1.5 K/uL (1.0-4.3); LYMPH % 24.2 % (20.0-40.0); MEAN CELL VOLUME 89.7 fl (80.0-94.0); MEAN CORPUSCULAR HEMOGLOBIN 30.7 pg (27.0-31.0); MEAN CORPUSCULAR HGB CONC 34.2 g/dL (33.0-37.0); MEAN PLATELET VOLUME 8.8 fl (7.2-11.7); MONO # 0.7 K/uL (0.0-0.8); MONO % 10.5 % (0.0-10.0); NEUT # 3.7 K/uL (1.8-7.0); NEUT % 59.8 % (50.0-75.0); NRBC % 0.1 % (0.0-0.0); RED CELL DISTRIBUTION WIDTH 13.5 % (11.5-14.5); WHITE BLOOD COUNT 6.2 K/uL (4.8-10.8)
--- NOTE | 2017-02-13 12:41 | CT ---
PROCEDURE: CT Abdomen and Pelvis with contrast HISTORY: Lower abd pain, h/o diverticulitis COMPARISON: CT 01/01/2017 TECHNIQUE: Contrast dose: 95 cc of Omnipaque 300 Radiation dose: Total exam DLP = 1091 mGy-cm. This CT exam was performed using one or more of the following dose reduction techniques: Automated exposure control, adjustment of the mA and/or kV according to patient size, and/or use of iterative reconstruction technique. FINDINGS: LOWER THORAX: Unremarkable. LIVER: Unremarkable. No gross lesion or ductal dilatation. GALLBLADDER AND BILE DUCTS: Unremarkable. PANCREAS: Unremarkable. No gross lesion or ductal dilatation. SPLEEN: Unremarkable. ADRENALS: Unremarkable. No mass. KIDNEYS AND URETERS: Unremarkable. No hydronephrosis. No solid mass. VASCULATURE: Unremarkable. No aortic aneurysm. BOWEL: There is diverticulosis of the sigmoid colon without evidence of diverticulitis. Previous study showed diverticulitis in the sigmoid colon. This has resolved with no residual abscess. APPENDIX: Normal appendix. PERITONEUM: Unremarkable. No free fluid. No free air. LYMPH NODES: Unremarkable. No enlarged lymph nodes. BLADDER: Unremarkable. REPRODUCTIVE: Unremarkable. BONES: No acute fracture. OTHER FINDINGS: None. IMPRESSION: There is diverticulosis of the sigmoid colon without evidence of diverticulitis. Previous study showed diverticulitis in the sigmoid colon. This has resolved with no residual abscess.
[2017-02-13 13:16] LABS: RBC URINE 1 /hpf (0-3); URINE BILIRUBIN NEGATIVE (NEGATIVE); URINE BLOOD NEGATIVE (NEGATIVE); URINE COLOR STRAW (YELLOW); URINE GLUCOSE (UA) NEG (Normal); URINE KETONE NEGATIVE (NEGATIVE); URINE LEUKOCYTE ESTERASE NEG Leu/uL (Negative); URINE PROTEIN NEGATIVE (NEGATIVE); URINE UROBILINOGEN 0.2-1.0 mg/dL (0.2-1.0); WBC URINE < 1 /hpf (0-5)
--- NOTE | 2017-02-16 10:06 | CARD ---
APPROVED REPORT EKG Measurement Heart [id number] <Conclusion> Normal sinus rhythm Normal ECG
== END 2017-02-13 14:00 | disposition home or self-care (01) ==
LOC: H.ER 10:22
DX: K57.32 Diverticulitis of large intestine without perforation or abscess without bleeding (principal); R10.9 Unspecified abdominal pain
CPT/HCPCS: 74177; 80053; 81003; 82803; 83690; 85025; 85610; 85730; 87040; 87086; 99282; J2270; Q9967

== ENCOUNTER 2018-03-11 | Emergency (ER) | payer SELFPAY ==
[2018-03-11] VITALS: BMI 29.0
[2018-03-11] MEDS ORDERED: Sodium Chloride 0.9% 1,000 ML IV STA (00:33)
[2018-03-11 01:18] LABS: VENOUS BLOOD GAS BASE EXCESS 2.2 mmol/L (0.0-2.0); VENOUS BLOOD GAS PCO2 43 mmHg (40-60); VENOUS BLOOD GAS PO2 36 mm/Hg (30-55); VENOUS BLOOD PH 7.41 (7.32-7.43)
--- NOTE | 2018-03-11 01:30 | ED PDOC ---
HPI: Male Pain Chief Complaint (Provider): Fever x 1 week - 101 at home History Per: Patient History/Exam Limitations: no limitations Onset/Duration Of Symptoms: Days Current Symptoms Are (Timing): Still Present Additional Complaint(s): 47 yo male with no medical problems presents for evaluation of fever up to 100.5 at home over the last week with dysuria. PT denies N/V/D. Pt denies back pain. Pt denies abdominal pain. <Guera Quiñonez - Last Filed: 03/11/18 04:55> <Rashid Smith - Last Filed: 03/13/18 04:32> Time Seen by Provider: 03/11/18 00:21 Chief Complaint (Nursing): Fever Past Medical History Reviewed: Historical Data, Nursing Documentation, Vital Signs Vital Signs: Last Vital Signs Temp 98.6 F 03/11/18 00:11 Pulse 88 03/11/18 00:11 Resp 16 03/11/18 00:11 BP 133/86 03/11/18 00:11 Pulse Ox 100 03/11/18 00:11 - Medical History PMH: No Chronic Diseases, Diverticulitis Denies: Chronic Kidney Disease - Surgical History Surgical History: No Surg Hx - Family History Family History: States: Unknown Family Hx - Living Arrangements Living Arrangements: With Family - Social History Current smoker - smoking cessation education provided: No Alcohol: None Drugs: Denies <Guera Quiñonez - Last Filed: 03/11/18 04:55> Vital Signs: Last Vital Signs Temp 98.7 F 03/11/18 05:25 Pulse 86 03/11/18 05:25 Resp 18 03/11/18 05:25 BP 122/78 03/11/18 05:25 Pulse Ox 98 03/11/18 05:25 <Rashid Smith - Last Filed: 03/13/18 04:32> - Home Medications Home Medications: Ambulatory Orders Medication Instructions Recorded Naproxen [Naprosyn] 500 mg PO BID PRN #15 tablet 02/13/17 - Allergies Allergies/Adverse Reactions: Allergies Allergy/AdvReac Type Severity Reaction Status Date / Time No Known Allergies Allergy Verified 03/11/18 00:11 Review of Systems ROS Statement: Except As Marked, All Systems Reviewed And Found Negative Constitutional: Positive for: Fever, Chills. Negative for: Sweats Cardiovascular: Negative for: Chest Pain, Palpitations Respiratory: Negative for: Cough, Shortness of Breath Gastrointestinal: Negative for: Nausea, Vomiting, Abdominal Pain Genitourinary Male: Positive for: Dysuria. Negative for: Frequency, Incontinence <Guera Quiñonez - Last Filed: 03/11/18 04:55> Physical Exam - Reviewed Nursing Documentation Reviewed: Yes Vital Signs Reviewed: Yes - Physical Exam Appears: Positive for: Well, Non-toxic, No Acute Distress Head Exam: Positive for: ATRAUMATIC, NORMAL INSPECTION, NORMOCEPHALIC Skin: Positive for: Normal Color, Warm, DRY Eye Exam: Positive for: Normal appearance ENT: Positive for: Normal ENT Inspection Neck: Positive for: Normal, Painless ROM Cardiovascular/Chest: Positive for: Regular Rate, Rhythm Respiratory: Positive for: Normal Breath Sounds. Negative for: Accessory Muscle Use, Respiratory Distress Gastrointestinal/Abdominal: Positive for: Normal Exam, Soft. Negative for: Tenderness Back: Positive for: Normal Inspection. Negative for: L CVA Tenderness, R CVA Tenderness Extremity: Positive for: Normal ROM Neurologic/Psych: Positive for: Alert, Oriented <Guera Quiñonez - Last Filed: 03/11/18 04:55> - Laboratory Results Result Diagrams: 03/11/18 01:30 03/11/18 01:30 - ECG O2 Sat by Pulse Oximetry: 100 <Guera Quiñonez - Last Filed: 03/11/18 04:55> - Laboratory Results Result Diagrams: 03/11/18 01:30 03/11/18 01:30 <Rashid Smith - Last Filed: 03/13/18 04:32> Medical Decision Making Medical Decision Making: Labs normal. Urine normal. F/u with PCP or urologist <Guera Quiñonez - Last Filed: 03/11/18 04:55> Disposition - Patient ED Disposition Is Patient to be Admitted: Transfer of Care - Disposition Disposition: Transfer of Care Disposition Time: 04:56 <Guera Quiñonez - Last Filed: 03/11/18 04:55> <Rashid Smith - Last Filed: 03/13/18 04:32> - Clinical Impression Clinical Impression: Dysuria - Disposition Referrals: Jack Ahmadi MD [Medical Doctor] - Condition: STABLE Instructions: Dysuria, Adult (DC) Forms: [employer] (Macedonian) Print Language: BELIZEAN - [place] / COLOR STRIPPER / Resident Statement /DO has reviewed & agrees with the documentation as recorded. <Rashid Smith - Last Filed: 03/13/18 04:32>
[2018-03-11 01:40] LABS: BASO % 0.6 % (0.0-2.0); EOS # 0.1 K/uL (0.0-0.7); EOS % 1.3 % (0.0-4.0); HEMOGLOBIN 14.9 g/dL (12.0-18.0); LYMPH # 1.5 K/uL (1.0-4.3); LYMPH % 19.2 % (20.0-40.0); MEAN CELL VOLUME 91.2 fl (80.0-94.0); MEAN CORPUSCULAR HEMOGLOBIN 30.6 pg (27.0-31.0); MEAN CORPUSCULAR HGB CONC 33.6 g/dL (33.0-37.0); MEAN PLATELET VOLUME 8.6 fl (7.2-11.7); MONO # 0.9 K/uL (0.0-0.8); MONO % 10.9 % (0.0-10.0); NEUT # 5.4 K/uL (1.8-7.0); RBC 4.87 Mil/uL (4.40-5.90); RED CELL DISTRIBUTION WIDTH 12.8 % (11.5-14.5); WHITE BLOOD COUNT 7.9 K/uL (4.8-10.8)
[2018-03-11 01:49] LABS: SQUAMOUS EPITHIAL < 1 /hpf (0-5); URINE BILIRUBIN NEGATIVE (NEGATIVE); URINE BLOOD SMALL (NEGATIVE); URINE CLARITY SLIGHTY-CLOUDY (Clear); URINE COLOR YELLOW (YELLOW); URINE GLUCOSE (UA) NEG (Normal); URINE LEUKOCYTE ESTERASE NEG Leu/uL (Negative); URINE PROTEIN 30 mg/dL (NEGATIVE); URINE UROBILINOGEN 0.2-1.0 mg/dL (0.2-1.0)
[2018-03-11 01:51] LABS: ALB/GLOB RATIO 1.1 (1.0-2.1); ALBUMIN 4.2 g/dL (3.5-5.0); ALT/SGPT 55 U/L (21-72); AST/SGOT 40 U/L (17-59); BLOOD UREA NITROGEN 15 mg/dl (9-20); CALCIUM 9.1 mg/dL (8.4-10.2); GFR NON-AFRICAN AMERICAN > 60
[2018-03-11 06:21] VITALS: BP 122/78; PULSE 86; RESP 18; TEMP 98.7; O2SAT 98
== END 2018-03-11 05:25 | disposition home or self-care (01) ==
LOC: H.ER
DX: R30.0 Dysuria (principal)
CPT/HCPCS: 80053; 81003; 82803; 85025; 87040; 87086; 87491; 87591; 96360; 99283; J7030